=== PATIENT | female | born 1995 | race African-American/Black ===

== ENCOUNTER 2017-11-30 23:28 | Emergency (ER) | payer SELFPAY ==
[~2017-11-30] VITALS: Ht 170.2 cm; Wt 110.0 kg
[~2017-11-30 23:28] MED LIST: IBUP600 PO; OXYC1SOL5 PO; PREN0.01 PO
[2017-11-30 23:33] VITALS: BP 132/62; PULSE 66; RESP 18; TEMP 97.6; O2SAT 100
--- NOTE | 2017-12-01 02:26 | PD ---
HPI Chief Complaint: Eye Problems/Injury Time Seen by Provider: 02:14 Travel History International Travel<30 days: No Contact w/Intl Traveler<30days: No Traveled to known affect area: No History of Present Illness HPI 22-year-old black female presents emergency department complains of bilateral tearing and itching. Patient states that a family member had pinkeye a few days ago. She has had similar symptoms. She has not been sick recently. She does not wear contacts or glasses. No history of trauma. No fever chills, earache, sore throat, cough or congestion. No blurred vision or double vision. No matting. PFSH Past Medical History Medical History: Denies Significant Hx Immunizations Current: Yes Tetanus Vaccination: < 5 Years Influenza Vaccination: No ?: Unknown : 2 Para: 1 Past Surgical History Section: Yes (2) Social History Alcohol Use: No Tobacco Use: No Substance Use: No Allergies-Medications (Allergen,Severity, Reaction): Coded Allergies: No Known Allergies (Verified Adverse Reaction, Unknown, 12/01/17) Reported Meds & Prescriptions Reported Meds & Active Scripts Active Oxycodone/Acetaminophen 5 mg/325 mg 5 mg/325 mg Tab 1 Tab PO Q4H PRN Motrin 600 Mg Tab (Ibuprofen) 600 Mg Tab 600 Mg PO Q6H PRN Reported Vit ( Plus) (Prenat Multivit/[place]/Iron/Folic Ac) Tab 1 Tab PO DAILY Review of Systems General / Constitutional: No: Fever Eyes: Positive: Blurred Vision, Redness, Tearing, No: Diploplia, Photophobia, Drainage, Foreign Body Sensation, Pain, Blind Spots, Visual changes, Blindness HENT: No: Headaches Cardiovascular: No: Chest Pain or Discomfort Respiratory: No: Shortness of Breath Gastrointestinal: No: Abdominal Pain Genitourinary: No: Dysuria Musculoskeletal: No: Pain Skin: No Rash Neurologic: No: Weakness Psychiatric: No: Depression Endocrine: No: Polydipsia Hematologic/Lymphatic: No: Easy Bruising Physical Exam Narrative GENERAL: This is a well-nourished, well-developed patient, in no apparent distress. SKIN: No rashes, ecchymoses or lesions. Warm and dry. HEAD: Atraumatic. Normocephalic. EYES: PERRL, EOMI, both eyes are injected. The right greater than left. No scleral icterus. Lids are flipped and no foreign body seen. No obvious corneal injury. Patient has copious amounts of clear hearing bilaterally. No thick stringy mucus EARS: Clear NOSE: Nasal turbinates appear normal. THROAT: Mucosa pink and moist. Airway patent. NECK: Trachea midline. supple, moves head freely. LUNGS: Clear to auscultation. CV: Regular in rhythm. ABDOMEN: Soft nontender. EXT: No clubbing cyanosis or edema. Data Data Last Documented VS Vital Signs Date Time Temp Pulse Resp B/P (MAP) Pulse Ox O2 Delivery O2 Flow Rate FiO2 11/30/17 23:33 97.6 66 18 132/62 (85) 100 Orders Orders Polymyxin/Trimethop Opht Soln (Polytrim (12/01/17 02:30) Naphazoline 0.012% Opth Soln (Clear Eyes (12/01/17 02:30) Ed Discharge Order (12/01/17 02:20) Tobramycin 0.3% Opth Soln (Tobrex 0.3% O (12/01/17 02:45) MDM Medical Decision Making Medical Screen Exam Complete: Yes Emergency Medical Condition: Yes Medical Record Reviewed: Yes Differential Diagnosis MDM: High Differential diagnoses: Acute conjunctivitis (bacterial, viral, allergic, traumatic), glaucoma, iritis, Narrative Course I have agreed to treat her for bacterial conjunctivitis. She is given Polytrim ophthalmic drops as well as Naphcon. This is conjunctivitis Diagnosis Primary Impression: Conjunctivitis Additional Instructions: Rest. Wash eyelashes with baby shampoo 3 times daily. Warm compresses. Tobramycin ophthalmic drops 1 drop in each eye 4 times daily. Naphcon-A 1 drop in each eye 4 times daily. Followup with an eye doctor in one week. Follow-up with a medical doctor one week. Return to the ER if any problems. Med/Other Pt SpecificInfo: Prescription(s) given Disposition: 01 DISCHARGE HOME Condition: Stable Everton Mathews December 01, 2017 02:26
[2017-12-01] MEDS ORDERED: NAPHAZOLINE HCL 0.012% OPHT SOLN 15 ML BOTTLE EACH EYE ONE (02:30)
[2017-12-01] MEDS ORDERED: POLYMYXIN/TRIMETHOPRIM OPHT SOLN 10 ML BTL EACH EYE ONE (02:30)
[2017-12-01] MEDS ORDERED: TOBRAMYCIN SULF 0.3% OPHT SOLN 5 ML BTL EACH EYE ONE (02:45)
== END 2017-12-01 03:21 | disposition home or self-care (01) ==
LOC: NEPD 23:28
DX: H10.9 Unspecified conjunctivitis (principal)
CPT/HCPCS: 99282

== ENCOUNTER 2017-12-05 15:08 | Emergency (ER) | payer SELFPAY ==
[~2017-12-05] VITALS: Ht 170.2 cm; Wt 110.0 kg
[2017-12-05 15:15] VITALS: BP 134/79; PULSE 91; RESP 16; TEMP 98.6; O2SAT 99
[2017-12-05] MEDS ORDERED: NEOMSUS EACH EYE (15:43)
--- NOTE | 2017-12-05 15:45 | PD ---
HPI Chief Complaint: Eye Problems/Injury Time Seen by Provider: 15:34 Travel History International Travel<30 days: No Contact w/Intl Traveler<30days: No Traveled to known affect area: No History of Present Illness HPI 22-year-old -[place] female presents emergency department with worsening bilateral conjunctivitis symptoms. Patient was seen here 2 days ago and given tobramycin ophthalmic drops as well as Naphcon-A drops. She since has developed increased pain, drainage, and erythema and swelling of the eyelids. Patient denies significant visual changes other than photophobia. She has no fever, chills or other symptoms. I pain is rated as a 7 out of 10. She has no previous drug allergies. PFSH Past Medical History Immunizations Current: Yes ?: Not : 2 Para: 1 Past Surgical History Section: Yes (2) Social History Alcohol Use: No Tobacco Use: No Substance Use: No Allergies-Medications (Allergen,Severity, Reaction): Coded Allergies: No Known Allergies (Verified Adverse Reaction, Unknown, 12/01/17) Reported Meds & Prescriptions Reported Meds & Active Scripts Active Gkhivpud-Afvnbjmiv-GH Opth Drops 3.5-10,000-1 Ng-Units-% Susp 1 Drop EACH EYE Q4H 1 Days Oxycodone/Acetaminophen 5-325 mg/5Ml (Oxycodone W/ Acetaminophen) 5 mg/325 mg Tab 1 Tab PO Q4H PRN Motrin 600 Mg Tab (Ibuprofen) 600 Mg Tab 600 Mg PO Q6H PRN Reported Vit ( Plus) (Prenat Multivit/[place]/Iron/Folic Ac) Tab 1 Tab PO DAILY Review of Systems Except as stated in HPI: all other systems reviewed are Neg General / Constitutional: No: Fever Eyes: Positive: Photophobia, Redness, Foreign Body Sensation, Pain, Tearing, No : Diploplia, Blurred Vision, Drainage, Blind Spots, Visual changes, Blindness HENT: No: Headaches Cardiovascular: No: Chest Pain or Discomfort Respiratory: No: Shortness of Breath Gastrointestinal: No: Abdominal Pain Genitourinary: No: Dysuria Musculoskeletal: No: Pain Skin: No Rash Neurologic: No: Weakness Psychiatric: No: Depression Endocrine: No: Polydipsia Hematologic/Lymphatic: No: Easy Bruising Physical Exam Narrative GENERAL: Patient appears in moderate distress. SKIN: Warm and dry. Normal color. Normal turgor. No rash HEAD: Atraumatic. Normocephalic. EYES: Pupils equal and round. No scleral icterus. Both eyes have moderate conjunctival injection, and mild swelling of both upper and lower eyelids. Corneas appear normal. ENT: No nasal bleeding or discharge. Mucous membranes pink and moist. NECK: Trachea midline. Supple and nontender. CARDIOVASCULAR: Regular rate and rhythm. RESPIRATORY: No accessory muscle use. Clear to auscultation. Breath sounds equal bilaterally. MUSCULOSKELETAL: Extremities without clubbing, cyanosis, or edema. No obvious deformities. NEUROLOGICAL: Awake and alert. No obvious cranial nerve deficits. Motor grossly within normal limits. Five out of 5 muscle strength in the arms and legs. Normal speech. PSYCHIATRIC: Appropriate mood and affect; insight and judgment normal. Data Data Last Documented VS Vital Signs Date Time Temp Pulse Resp B/P (MAP) Pulse Ox O2 Delivery O2 Flow Rate FiO2 12/05/17 15:15 98.6 91 16 134/79 (97) 99 MDM Medical Decision Making Medical Screen Exam Complete: Yes Emergency Medical Condition: Yes Differential Diagnosis Bilateral conjunctivitis. Medication reaction. Need for medication change Narrative Course Patient will be changed to neomycin/polymyxin/HC ophthalmic drops every 4 hours for the next week Patient can take ibuprofen for pain. Work note is given. 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 Diagnosis Primary Impression: Medication reaction Qualified Codes: T88.7XXA - Unspecified adverse effect of drug or medicament, initial encounter Additional Impression: Conjunctivitis Qualified Codes: H10.33 - Unspecified acute conjunctivitis, bilateral Referrals: Anna Luna MD Patient Instructions: General Instructions Med/Other Pt SpecificInfo: Prescription(s) given Scripts Yopewupu-Jaawwfqow-DD Opth Drops (Jvfgugnw-Kctbxpxlj-XB Opth Drops) 3.5-10,000- 1 Ng-Units-% Susp 1 DROP EACH EYE Q4H for Infection for 1 Day, BOTTLE 0 Refills Prov: LdPrisca Doris RICHEY 12/05/17 Disposition: 01 DISCHARGE HOME Condition: Stable Oswald Cherry December 05, 2017 15:45
== END 2017-12-05 16:16 | disposition home or self-care (01) ==
LOC: NEPK 15:08
DX: T88.7XXA Unspecified adverse effect of drug or medicament, initial encounter (principal); T50.905A Adverse effect of unspecified drugs, medicaments and biological substances, initial encounter; H10.33 Unspecified acute conjunctivitis, bilateral
CPT/HCPCS: 99283